=== PATIENT | male | born 1980 | race Caucasian/White ===

== ENCOUNTER 2021-01-17 16:34 | Emergency (ER) | payer MEDICAID ==
[~2021-01-17] VITALS: Ht 172.7 cm; Wt 108.9 kg
[2021-01-17 16:42] VITALS: BP_SYST 142
--- NOTE | 2021-01-17 16:42 | NUR ---
Patient to ER bed 3 to gown for evaluation. Side rails up.
--- NOTE | 2021-01-17 16:45 | NUR ---
Pt came in for left knee pain that started 3 - 4 days ago while walking at work. Pain is at 6/10 at this time. No redness noted at the site. Unsteady gait. Pending MD álvarez.
[2021-01-17] MEDS ORDERED: IBUPROFEN 600 MG TABLET PO ONE (17:15)
--- NOTE | 2021-01-17 17:40 | NUR ---
Pt returned from XR, currently resting in bed, in no apparent distress, respirations unlabored, chest equal rise and fall. Pending XR read to MD dispo.
--- NOTE | 2021-01-17 18:01 | NUR ---
Patient given written and verbal discharge instructions and verbalizes understanding. ER MD Carter discussed with patient the results and treatment provided. Patient in stable condition. ID arm band removed. Patient educated on pain management and to follow up with PMD. Pain Scale 0/10. Opportunity for questions provided and answered. Medication side effect fact sheet provided.
[2021-01-17 18:02] VITALS: BP_SYST 137
== END 2021-01-17 18:02 | disposition home or self-care (01) ==
LOC: SED 16:34
DX: M25.562 Pain in left knee (principal)
CPT/HCPCS: 73564; 99284

== ENCOUNTER 2021-04-18 15:47 | Emergency (ER) | payer MEDICAID ==
[~2021-04-18] VITALS: Ht 167.6 cm; Wt 113.4 kg
[2021-04-18 15:57] VITALS: BP_SYST 157
[2021-04-18 16:49] VITALS: BP_SYST 157
== END 2021-04-18 16:45 | disposition home or self-care (01) ==
LOC: SED 15:47
DX: S86.812A Strain of other muscle(s) and tendon(s) at lower leg level, left leg, initial encounter (principal); X50.9XXA Other and unspecified overexertion or strenuous movements or postures, initial encounter; Y93.89 Activity, other specified; Y92.89 Other specified places as the place of occurrence of the external cause; Y99.8 Other external cause status
CPT/HCPCS: 99283

== ENCOUNTER 2021-06-02 14:33 | Emergency (ER) | payer MEDICAID ==
[~2021-06-02] VITALS: Ht 172.7 cm; Wt 113.4 kg
[2021-06-02 14:33] VITALS: BP_SYST 137
--- NOTE | 2021-06-02 14:33 | NUR ---
Patient triaged and placed in waiting room. VSS and patient appears in no acute distress at this time. Accompanied by GIRLFRIEND, awaiting available bed, and MD notified of need for MSE.
--- NOTE | 2021-06-02 14:40 | NUR ---
DR WEBER EVALUATING PT IN TRIAGE ROOM
--- NOTE | 2021-06-02 15:10 | NUR ---
PT REFUSED TO GET HIS BLOOD DRAWN, PT REQUESTING TO SIGN OUT AMA
[2021-06-02] MEDS ORDERED: CLIN300C12 PO (15:35)
--- NOTE | 2021-06-02 15:47 | NUR ---
Patient does not wish to proceed with medical care recommended by DR WEBER. Patient given information related to possible complications, up to and including , which could occur as a result of leaving hospital at this time. Patient verbalizes understanding of risks involved leaving against medical advice. Patient has signed AMA form.
== END 2021-06-02 15:47 | disposition left against medical advice (07) ==
LOC: SED 14:33
DX: L03.113 Cellulitis of right upper limb (principal)
CPT/HCPCS: 73090; 99283